=== PATIENT | male | born 1955 | race African-American/Black ===

== ENCOUNTER 2020-03-05 17:10 | Inpatient (IN) | payer MEDICARE, MEDICAID ==
[~2020-03-05] VITALS: Ht 185.4 cm; Wt 89.8 kg
[~2020-03-05 17:10] MED LIST: AMLO5TAB88 PO; ASPI-1497 PO; ATOR80TA PO; CARV25TA47 PO; COR6 PO; FURO40TA5 PO; GABA-532 PO; LISI10TA5 PO; TAMS-11 PO; TIOT18CA3 INH
[2020-03-05] MEDS ORDERED: IPRATROPIUM BROMIDE (0.02%) 0.5MG/2.5ML NEB HHN STA (18:24)
[2020-03-05] MEDS ORDERED: ALBUTEROL (0.083%) 2.5MG/3ML NEB HHN STA (18:24)
[2020-03-05] MEDS ORDERED: METHYLPREDNISOLONE SOD SUCC 125 MG/2 ML VIAL IV STA (18:24)
[2020-03-05 18:56] LABS: BASOPHILS % 0.8 % (0.0-2.0); EOSINOPHILS % 0.3 % (0.0-5.0); HEMATOCRIT. 47.7 % (42.0-52.0); HEMOGLOBIN. 15.4 g/dL (14.0-18.0); LYMPHOCYTES % 49.3 % (20.0-50.0); MEAN CORPUSCULAR HEMOGLOBIN 34.6 pg (28.0-32.0); MEAN CORPUSCULAR VOLUME 107.1 fL (80.0-94.0); MEAN PLATELET VOLUME 10.5 fl (7.4-10.4); MONOCYTES % 12.9 % (2.0-8.0); NEUTROPHILS % 36.7 % (40.0-76.0); PLATELET 140 x1000/uL (130-400); RED BLOOD CELL COUNT 4.46 mill/uL (4.7-6.1); RED CELL DISTRIBUTION WIDTH 15.9 % (11.6-14.6)
[2020-03-05 19:03] LABS: CHLORIDE 108 mEq/L (98-107)
[2020-03-05 19:08] LABS: PROTHROMBIN TIME 10.7 sec (9.6-11.0)
[2020-03-05 19:09] LABS: C REACTIVE PROTEIN QUANT 9.2 mg/L (0.0-3.0)
[2020-03-05] MEDS ORDERED: ASPIRIN 325MG EC TABLET PO NR (19:45)
[2020-03-05] MEDS ORDERED: DOCUSATE SODIUM 100MG CAPSULE PO PRN (22:00)
[2020-03-05] MEDS ORDERED: HYDROCODONE/ACETAMINOPHEN 5/325MG TABLET PO PRN (22:00)
[2020-03-05] MEDS ORDERED: ONDANSETRON HCL 4MG/2ML INJ IV PRN (22:00)
[2020-03-05] MEDS ORDERED: MAGNESIUM/ALUMINUM HYDROXIDE/SIMETHICONE 30ML UDC PO PRN (22:00)
[2020-03-05] MEDS ORDERED: ACETAMINOPHEN 325MG TABLET PO PRN (22:00)
[2020-03-05] MEDS ORDERED: GUAIFENESIN 200MG/10ML SUGAR FREE UDC PO PRN (22:00)
[2020-03-05] MEDS ORDERED: DIPHENHYDRAMINE 50MG/ML VIAL IV PRN (22:00)
[2020-03-05] MEDS ORDERED: CLONIDINE 0.1MG TABLET PO PRN (22:00)
[2020-03-05] MEDS ORDERED: ALBUTEROL 6.7GM HFA INHALER ORI PRN (22:00)
[2020-03-05] MEDS ORDERED: SODIUM POLYSTYRENE SULFONATE 15 G/60 ML BOT PO NR (23:00)
[2020-03-05] MEDS ORDERED: PIPERACILLIN/TAZ 3.375G PREMIX 50 ML IV ONE (23:00)
[2020-03-05] MEDS: SODIUM CHLORIDE 0.9% INJ 3ML FLUSH IVF SCH (23:00)
[2020-03-05] MEDS ORDERED: CEFTRIAXONE 1 G PREMIX 50 ML IV SCH (23:00)
[2020-03-05] MEDS ORDERED: ENOXAPARIN 40MG/0.4ML SYR SUBCUT SCH (23:00)
[2020-03-06 01:24] LABS: CLARITY URINE CLEAR (CLEAR); COLOR URINE YELLOW (YELLOW); KETONES URINE NEGATIVE (NEGATIVE); LEUKOCYTE ESTERASE URINE NEGATIVE (NEGATIVE); NITRITE URINE NEGATIVE (NEGATIVE); OCCULT BLOOD URINE NEGATIVE (NEGATIVE); PH URINE 5.5 (4.5-8.0); PROTEIN URINE 3+ (NEGATIVE); SPECIFIC GRAVITY URINE 1.018 (1.005-1.030)
[2020-03-06] MEDS: AZITHROMYCIN 500 MG in DEXT 5% WATER 250 ML IV SCH (02:48)
[2020-03-06 05:31] LABS: HEMATOCRIT. 43.1 % (42.0-52.0); HEMOGLOBIN. 14.1 g/dL (14.0-18.0); MEAN CORPUSCULAR HEMOGLOBIN 34.6 pg (28.0-32.0); MEAN CORPUSCULAR VOLUME 105.5 fL (80.0-94.0); MEAN PLATELET VOLUME 9.7 fl (7.4-10.4); PLATELET 134 x1000/uL (130-400); RED BLOOD CELL COUNT 4.08 mill/uL (4.7-6.1); RED CELL DISTRIBUTION WIDTH 15.7 % (11.6-14.6)
[2020-03-06 05:41] LABS: CHLORIDE 110 mEq/L (98-107)
[2020-03-06] MEDS: SODIUM CHLORIDE 0.9% INJ 3ML FLUSH IVF SCH ×3 (06:00→22:14)
[2020-03-06] MEDS ORDERED: DEXAMETHASONE 4MG/ML 1ML VIAL IV SCH (09:00)
[2020-03-06 16:36] LABS: PLATELET ESTIMATE NORMAL
[2020-03-06] MEDS: FUROSEMIDE 20MG/2ML VIAL IVP SCH (19:33)
[2020-03-07] MEDS: AZITHROMYCIN 500 MG in DEXT 5% WATER 250 ML IV SCH ×2
[2020-03-07] MEDS: CEFTRIAXONE 1 G PREMIX 50 ML IV SCH ×2 (00:02→00:39)
[2020-03-07] MEDS: ENOXAPARIN 40MG/0.4ML SYR SUBCUT SCH (00:39)
[2020-03-07] MEDS: SODIUM CHLORIDE 0.9% INJ 3ML FLUSH IVF SCH ×3 (06:00→22:09)
[2020-03-07 09:42] LABS: BG BASE EXCESS -6.3 mmol/L (-2.0-2.0); BG CARBOXYHEMOGLOBIN 1.2 % (0.5-1.5); BG DEOXYHEMOGLOBIN 1.5 % (0.0-5.0); BG FRACTION INSPIRED OXYGEN 44; BG HCO3 ACT 19.2 mmol/L (22.0-26.0); BG OXYGEN SATURATION 98.5 % (92.0-98.5); BG OXYHEMOGLOBIN 97.3 % (94.0-97.0); BG PCO2 38.3 mmHg (35.0-45.0); BG PH 7.319 (7.350-7.450); BG PO2 129.2 mmHg (75.0-100.0); BG SAMPLE SITE RIGHT BRACHIAL; BG VENT MODE NASAL CANNULA
[2020-03-07] MEDS: DEXAMETHASONE 10 MG/ML VIAL IV SCH (11:46)
[2020-03-07] MEDS: FUROSEMIDE 20MG/2ML VIAL IVP SCH ×2 (11:46→17:00)
[2020-03-07] MEDS: MORPHINE SULFATE 2 MG/ML CPJ (NOT FOR IM USE) IV PRN (11:46)
[2020-03-08] MEDS: AZITHROMYCIN 500 MG in DEXT 5% WATER 250 ML IV SCH (00:52)
[2020-03-08] MEDS: ENOXAPARIN 40MG/0.4ML SYR SUBCUT SCH (00:54)
[2020-03-08] MEDS: MORPHINE SULFATE 2 MG/ML CPJ (NOT FOR IM USE) IV PRN (02:36)
[2020-03-08] MEDS: SODIUM CHLORIDE 0.9% INJ 3ML FLUSH IVF SCH ×3 (06:34→23:59)
[2020-03-08 09:22] LABS: BASOPHILS % 0.5 % (0.0-2.0); HEMOGLOBIN. 16.9 g/dL (14.0-18.0); LYMPHOCYTES % 25.3 % (20.0-50.0); MEAN CORPUSCULAR HEMOGLOBIN 33.9 pg (28.0-32.0); MEAN CORPUSCULAR VOLUME 108.5 fL (80.0-94.0); MEAN PLATELET VOLUME 10.7 fl (7.4-10.4); MONOCYTES % 13.9 % (2.0-8.0); NEUTROPHILS % 60.3 % (40.0-76.0); PLATELET 156 x1000/uL (130-400); RED BLOOD CELL COUNT 4.98 mill/uL (4.7-6.1); RED CELL DISTRIBUTION WIDTH 16.2 % (11.6-14.6)
[2020-03-08] MEDS: FUROSEMIDE 20MG/2ML VIAL IVP SCH ×2 (09:27→19:39)
[2020-03-08] MEDS: DEXAMETHASONE 10 MG/ML VIAL IV SCH (09:27)
[2020-03-08] MEDS ORDERED: SODIUM POLYSTYRENE SULFONATE 15 G/60 ML BOT PO NR (15:30)
[2020-03-08] MEDS: LORAZEPAM 2MG/ML CPJ IV PRN ×2 (19:33→19:39)
[2020-03-08] MEDS ORDERED: INSULIN REGULAR (HUMULIN R) 300UNITS/3ML VIAL IV NR (22:45)
[2020-03-08] MEDS ORDERED: CALCIUM CHLORIDE 1000 MG in DEXTROSE 5% WATER 100 ML IV NR (23:30)
[2020-03-08] MEDS ORDERED: CALCIUM GLUCONATE 1000 MG in DEXTROSE 5% WATER 100 ML IV NR (23:30)
[2020-03-09] MEDS: MORPHINE SULFATE 2 MG/ML CPJ (NOT FOR IM USE) IV PRN (01:02)
[2020-03-09] MEDS: ENOXAPARIN 40MG/0.4ML SYR SUBCUT SCH (01:02)
[2020-03-09] MEDS: AZITHROMYCIN 500 MG in DEXT 5% WATER 250 ML IV SCH (01:06)
[2020-03-09 12:00] VITALS: BP 119/93
[2020-03-09 12:22] VITALS: BP 101/93
[2020-03-09] MEDS: SODIUM CHLORIDE 0.9% INJ 3ML FLUSH IVF SCH ×2 (14:43→21:26)
[2020-03-09 16:00] VITALS: BP 117/89
[2020-03-09 17:15] LABS: CREATINE KINASE MB FRACTION 6.9 ng/mL (0.5-3.6)
[2020-03-09] MEDS: FUROSEMIDE 20MG/2ML VIAL IVP SCH (17:55)
[2020-03-09 20:00] VITALS: BP 129/95
[2020-03-09] MEDS ORDERED: SODIUM POLYSTYRENE SULFONATE 15 G/60 ML BOT PO NR (21:00)
[2020-03-10] VITALS: BP 128/87
[2020-03-10] MEDS ORDERED: CEFTRIAXONE 1,000 MG in DEXTROSE 5% WATER 50 ML IV SCH (01:00)
[2020-03-10] MEDS ORDERED: AZITHROMYCIN 500MG in DEXTROSE 5% WATER 250ML IV SCH (01:00)
[2020-03-10] MEDS: ENOXAPARIN 40MG/0.4ML SYR SUBCUT SCH ×2 (01:19→23:09)
[2020-03-10] MEDS: SODIUM CHLORIDE 0.9% INJ 3ML FLUSH IVF SCH ×3 (03:00→22:00)
[2020-03-10 04:00] VITALS: BP 122/85
[2020-03-10 08:00] VITALS: BP 119/87
[2020-03-10] MEDS: FUROSEMIDE 20MG/2ML VIAL IVP SCH ×2 (08:41→16:36)
[2020-03-10] MEDS: DEXAMETHASONE 10 MG/ML VIAL IV SCH (08:42)
[2020-03-10] MEDS: LORAZEPAM 2MG/ML CPJ IV PRN (09:15)
[2020-03-10] MEDS: HALOPERIDOL LACTATE 5MG/ML VIAL IM PRN (17:56)
[2020-03-11] MEDS: SODIUM CHLORIDE 0.9% INJ 3ML FLUSH IVF SCH ×2 (02:05→13:09)
[2020-03-11] MEDS: HALOPERIDOL LACTATE 5MG/ML VIAL IM PRN (03:01)
[2020-03-11 04:00] VITALS: BP 129/90
[2020-03-11] MEDS: FUROSEMIDE 20MG/2ML VIAL IVP SCH ×2 (09:00→09:25)
[2020-03-11] MEDS: DEXAMETHASONE 10 MG/ML VIAL IV SCH ×2 (09:00→09:25)
[2020-03-11 14:31] VITALS: BP 139/82
== END 2020-03-11 16:15 | disposition home health service (06) | DRG 871 ==
LOC: ER 17:10 → MICUSO 20:39 → EDBEDREQ 20:40 → EDBEDREQTM 20:40 → EDBEDREQSVC 20:40 → 7EST 03-09 08:07
PROVIDERS: ADMIT Internal Medicine; ATTEND Internal Medicine
DX: A41.89 Other specified sepsis (principal); U07.1 COVID-19; J96.21 Acute and chronic respiratory failure with hypoxia; J12.82 Pneumonia due to coronavirus disease 2019; N17.0 Acute kidney failure with tubular necrosis; C85.90 Non-Hodgkin lymphoma, unspecified, unspecified site; E46 Unspecified protein-calorie malnutrition; E87.2 Acidosis; I13.0 Hypertensive heart and chronic kidney disease with heart failure and stage 1 through stage 4 chronic kidney disease, or unspecified chronic kidney disease; I42.9 Cardiomyopathy, unspecified; I50.22 Chronic systolic (congestive) heart failure; J44.0 Chronic obstructive pulmonary disease with (acute) lower respiratory infection; J44.1 Chronic obstructive pulmonary disease with (acute) exacerbation; B97.89 Other viral agents as the cause of diseases classified elsewhere; D72.819 Decreased white blood cell count, unspecified; E87.5 Hyperkalemia; F10.21 Alcohol dependence, in remission; H54.3 Unqualified visual loss, both eyes; R77.8 Other specified abnormalities of plasma proteins; I08.3 Combined rheumatic disorders of mitral, aortic and tricuspid valves; I25.10 Atherosclerotic heart disease of native coronary artery without angina pectoris; N18.9 Chronic kidney disease, unspecified; Z90.5 Acquired absence of kidney; Z95.810 Presence of automatic (implantable) cardiac defibrillator; Z99.81 Dependence on supplemental oxygen; Z87.891 Personal history of nicotine dependence; Z79.82 Long term (current) use of aspirin; Z79.899 Other long term (current) drug therapy; Z85.71 Personal history of Hodgkin lymphoma; Z68.26 Body mass index [BMI] 26.0-26.9, adult
CPT/HCPCS: 36415; 36600; 71045; 80048; 80053; 81003; 82375; 82550; 82553; 82728; 82805; 82962; 83605; 83880; 84145; 84484; 85025; 85379; 86140; 87635; 93005; 93970; 94644; 99291; J0456; J0610; J0696; J1100; J1630; J1650; J1815; J1940; J2060; J2270; J2543; J2930; J3490; J7060